=== PATIENT | female | born 1930 | race Asian ===

== ENCOUNTER 2017-01-17 18:30 | Inpatient (IN) | payer MEDICARE, OTHER ==
[~2017-01-17] VITALS: Ht 152.4 cm; Wt 46.4 kg
[~2017-01-17 18:30] MED LIST: ATOR20TA86 PO; CEFU250T58 PO; LOSA1TAB36 PO; METF500T4 PO; METO-323 PO; MIRT15 PO; OMEP20 PO; SITA1TAB6 PO
[2017-01-17 19:01] LABS: GLUCOSE,POINT OF CARE 162 MG/DL (70-110)
[2017-01-17 19:42] LABS: BASOPHILS % (AUTO) 0.4 % (0.0-2.0); EOSINOPHILS % (AUTO) 1.7 % (1.0-6.0); HEMATOCRIT 37.9 % (36-46); HEMOGLOBIN 12.4 g/dL (12.0-16.0); LYMPHOCYTES % (AUTO) 25.1 % (22.0-44.0); MEAN CORPUSCULAR HEMOGLOBIN 30.3 pg (26.0-34.0); MEAN CORPUSCULAR HGB CONC 32.7 G/dL (31.0-37.0); MEAN CORPUSCULAR VOLUME 93 fL (80-100); MONOCYTES # (AUTO) 0.5 K/uL (0.1-1.0); MONOCYTES % (AUTO) 6.5 % (2.0-9.0); NEUTROPHILS # (AUTO) 5.2 K/uL (1.8-7.7); NEUTROPHILS % (AUTO) 66.3 % (40.0-70.0); PLATELET COUNT (AUTO) 205 K/uL (150-450); RED BLOOD CELL COUNT(AUTO) 4.08 MIL/uL (4.00-5.20); RED CELL DISTRIBUTION WIDTH 14.5 % (11.5-14.5); WHITE BLOOD COUNT (AUTO) 7.9 K/uL (4.5-11.0)
[2017-01-17 19:50] LABS: CALCIUM, TOTAL 8.8 mg/dL (8.8-10.5); CREATININE 1.52 mg/dL (0.60-1.30); POTASSIUM 4.3 mmol/L (3.5-5.1)
[2017-01-17 19:55] LABS: ALBUMIN 3.6 g/dL (3.4-5.0); BILIRUBIN,TOTAL 0.3 mg/dL (0.1-1.0); TOTAL PROTEIN, SERUM 7.7 g/dL (6.4-8.2)
[2017-01-17 20:45] LABS: APPEARANCE,URINE CLOUDY (CLEAR); GLUCOSE, URINE (UA) NEGATIVE (NEGATIVE); KETONES,URINE TRACE mg/dL (NEGATIVE); LEUKOCYTE ESTERASE ,URINE SMALL (NEGATIVE); OCCULT BLOOD,URINE NEGATIVE (NEGATIVE); PH,URINE 5.5 (5.0-8.0); PROTEIN,URINE TRACE (NEGATIVE)
[2017-01-17 20:48] LABS: COARSE GRANULAR CASTS,URINE 0-2 /LPF (None Seen); RBC,URINE 0-2 /HPF (0-2); SQUAMOUS EPITHELIAL CELL,UR Few /LPF (None Seen)
[2017-01-17 23:00] VITALS: BP 121/60
[2017-01-17] MEDS ORDERED: LORazepam 2 MG/ML VIAL IM PRN (23:00)
[2017-01-17] MEDS ORDERED: DEXTROSE 50%-WATER 25 GM/50 ML SYRINGE IVP PRN (23:00)
[2017-01-18 05:23] VITALS: BP 134/62
[2017-01-18 06:14] LABS: BASOPHILS % (AUTO) 0.5 % (0.0-2.0); EOSINOPHILS % (AUTO) 2.6 % (1.0-6.0); HEMATOCRIT 35.9 % (36-46); HEMOGLOBIN 11.7 g/dL (12.0-16.0); LYMPHOCYTES # (AUTO) 2.4 K/uL (1.0-4.8); LYMPHOCYTES % (AUTO) 29.8 % (22.0-44.0); MEAN CORPUSCULAR HEMOGLOBIN 30.3 pg (26.0-34.0); MEAN CORPUSCULAR HGB CONC 32.5 G/dL (31.0-37.0); MEAN CORPUSCULAR VOLUME 93 fL (80-100); MONOCYTES # (AUTO) 0.5 K/uL (0.1-1.0); MONOCYTES % (AUTO) 6.9 % (2.0-9.0); NEUTROPHILS # (AUTO) 4.8 K/uL (1.8-7.7); NEUTROPHILS % (AUTO) 60.2 % (40.0-70.0); PLATELET COUNT (AUTO) 180 K/uL (150-450); RED BLOOD CELL COUNT(AUTO) 3.85 MIL/uL (4.00-5.20); RED CELL DISTRIBUTION WIDTH 14.6 % (11.5-14.5); WHITE BLOOD COUNT (AUTO) 7.9 K/uL (4.5-11.0)
[2017-01-18] MEDS: INSULIN ASPART 100 UNITS/ML SQ PRN (06:14)
[2017-01-18 06:42] LABS: CALCIUM, TOTAL 8.7 mg/dL (8.8-10.5); CHOL/HDL RATIO 1.5 (3.9-5.7); CREATININE 1.43 mg/dL (0.60-1.30); POTASSIUM 4.1 mmol/L (3.5-5.1)
[2017-01-18 07:02] VITALS: BP 120/53
[2017-01-18 07:16] LABS: HEMOGLOBIN A1C 6.5 % (4.5-6.2)
[2017-01-18 07:46] LABS: GLUCOSE COMMENT 1 Received Meds; GLUCOSE,POINT OF CARE 159 MG/DL (70-110)
[2017-01-18] MEDS ORDERED: 0.9% SODIUM CHLORIDE 10 ML SYRINGE IVP PRN (08:45)
[2017-01-18] MEDS ORDERED: ONDANSETRON HCL 4 MG/2 ML VIAL IVP PRN (08:45)
[2017-01-18] MEDS ORDERED: ACETAMINOPHEN 325 MG TABLET PO PRN (08:45)
[2017-01-18] MEDS ORDERED: ZOLPIDEM TARTRATE 5 MG TABLET PO PRN (08:45)
[2017-01-18] MEDS ORDERED: HYDROCODONE/ACETAMINOPHEN 5-325 MG TABLET PO PRN (08:45)
[2017-01-18] MEDS ORDERED: IPRATROPIUM BROMIDE 0.5 MG/2.5 ML NEB SOLUTION NEB PRN (08:45)
[2017-01-18] MEDS ORDERED: ALBUTEROL SULFATE 2.5 MG/0.5 ML NEB SOLUTION NEB PRN (08:45)
[2017-01-18] MEDS ORDERED: HYDROCHLOROTHIAZIDE 25 MG TABLET PO SCH (09:00)
[2017-01-18] MEDS ORDERED: OMEPRAZOLE 20 MG CAPSULE PO SCH (09:00)
[2017-01-18] MEDS ORDERED: LOSARTAN POTASSIUM 50 MG TABLET PO SCH (09:00)
[2017-01-18] MEDS ORDERED: HEPARIN SODIUM,PORCINE 5,000 UNITS/ML VIAL SQ SCH (09:00)
[2017-01-18] MEDS ORDERED: MISC MED-CONVERTED FROM AMBULATORY (Losartan/Hydrochlorothiazide (Losartan-Hctz 100-12.5 M PO SCH (09:00)
[2017-01-18] MEDS: METOPROLOL SUCCINATE 25 MG ER TABLET PO SCH ×3 (09:23→20:01)
[2017-01-18] MEDS: DOCUSATE SODIUM 250 MG CAPSULE PO SCH ×3 (09:23→20:02)
[2017-01-18] MEDS: AmLODIPine BESYLATE 5 MG TABLET PO SCH (09:23)
[2017-01-18 11:32] VITALS: BP 116/60
[2017-01-18 11:32] LABS: GLUCOSE,POINT OF CARE 80 MG/DL (70-110)
[2017-01-18] MEDS: DONEPEZIL HCL 5 MG TABLET PO SCH (12:08)
[2017-01-18] MEDS: ACARBOSE 50 MG TABLET PO SCH ×2 (12:08→18:00)
[2017-01-18 16:00] VITALS: BP 126/55
[2017-01-18] MEDS ORDERED: CefTRIAXone 1 GM/DEXTROSE 50 ML IV SCH (16:00)
[2017-01-18] MEDS ORDERED: SODIUM CHLORIDE 0.9% 250 ML IV ONE (16:18)
[2017-01-18] MEDS: CefTRIAXone 1 GM/DEXTROSE 50 ML IV SCH (16:33)
[2017-01-18 17:56] LABS: GLUCOSE,POINT OF CARE 114 MG/DL (70-110)
[2017-01-18] MEDS: ATORVASTATIN CALCIUM 20 MG TABLET PO SCH (20:00)
[2017-01-18] MEDS: MIRTAZAPINE 15 MG TABLET PO SCH (20:00)
[2017-01-18] MEDS: HEPARIN SODIUM,PORCINE 5,000 UNITS/ML VIAL SQ SCH (20:01)
[2017-01-18 20:14] VITALS: BP 116/64
[2017-01-18] MEDS ORDERED: ATORVASTATIN CALCIUM 20 MG TABLET PO SCH (21:00)
[2017-01-18 21:21] LABS: GLUCOSE,POINT OF CARE 110 MG/DL (70-110)
[2017-01-19] VITALS (7 sets, daily range): BP systolic 115–134; BP diastolic 54–67
[2017-01-19] MEDS: PANTOPRAZOLE SODIUM 40 MG DR TABLET PO SCH (05:40)
[2017-01-19 07:47] LABS: GLUCOSE,POINT OF CARE 125 MG/DL (70-110)
[2017-01-19 08:17] LABS: BASOPHILS # (AUTO) 0.03 K/uL (0.00-0.20); BASOPHILS % (AUTO) 0.5 % (0.0-2.0); EOSINOPHILS # (AUTO) 0.19 K/uL (0.00-0.70); EOSINOPHILS % (AUTO) 2.79 % (1.0-6.0); HEMATOCRIT 34.7 % (36-46); HEMOGLOBIN 11.7 g/dL (12.0-16.0); LYMPHOCYTES # (AUTO) 1.5 K/uL (1.0-4.8); LYMPHOCYTES % (AUTO) 22.2 % (22.0-44.0); MEAN CORPUSCULAR HEMOGLOBIN 30.7 pg (26.0-34.0); MEAN CORPUSCULAR HGB CONC 33.6 G/dL (31.0-37.0); MEAN CORPUSCULAR VOLUME 91 fL (80-100); MONOCYTES # (AUTO) 0.5 K/uL (0.1-1.0); MONOCYTES % (AUTO) 6.9 % (2.0-9.0); NEUTROPHILS # (AUTO) 4.6 K/uL (1.8-7.7); NEUTROPHILS % (AUTO) 67.6 % (40.0-70.0); PLATELET COUNT (AUTO) 171 K/uL (150-450); RED CELL DISTRIBUTION WIDTH 14.8 % (11.5-14.5); WHITE BLOOD COUNT (AUTO) 6.7 K/uL (4.5-11.0)
[2017-01-19] MEDS: ACARBOSE 50 MG TABLET PO SCH ×3 (08:19→18:05)
[2017-01-19] MEDS: AmLODIPine BESYLATE 5 MG TABLET PO SCH (08:19)
[2017-01-19] MEDS: DONEPEZIL HCL 5 MG TABLET PO SCH (08:19)
[2017-01-19] MEDS: DOCUSATE SODIUM 250 MG CAPSULE PO SCH ×3 (08:20→20:04)
[2017-01-19] MEDS: HEPARIN SODIUM,PORCINE 5,000 UNITS/ML VIAL SQ SCH ×2 (08:20→20:23)
[2017-01-19] MEDS: METOPROLOL SUCCINATE 25 MG ER TABLET PO SCH ×3 (08:20→23:50)
[2017-01-19 09:12] LABS: BILIRUBIN,TOTAL 0.3 mg/dL (0.1-1.0); CALCIUM, TOTAL 8.8 mg/dL (8.8-10.5); CREATININE 1.03 mg/dL (0.60-1.30); POTASSIUM 4.5 mmol/L (3.5-5.1)
[2017-01-19 09:13] LABS: ALBUMIN 3.1 g/dL (3.4-5.0); TOTAL PROTEIN, SERUM 6.7 g/dL (6.4-8.2)
[2017-01-19 09:23] LABS: THYROID STIMULATING HORMONE 3.71 uIU/mL (0.36-3.74)
[2017-01-19] MEDS: ASPIRIN 81 MG CHEWABLE TABLET PO SCH (11:30)
[2017-01-19 11:42] LABS: GLUCOSE,POINT OF CARE 138 MG/DL (70-110)
[2017-01-19] MEDS ORDERED: LORazepam 1 MG TABLET PO ONE (12:00)
[2017-01-19 15:10] LABS: CREATININE, URINE (mALB) 63.7 mg/dL (Not Estab.)
[2017-01-19] MEDS: CefTRIAXone 1 GM/DEXTROSE 50 ML IV SCH (16:45)
[2017-01-19] MEDS: INSULIN ASPART 100 UNITS/ML SQ PRN (18:02)
[2017-01-19] MEDS: ATORVASTATIN CALCIUM 20 MG TABLET PO SCH (20:04)
[2017-01-19] MEDS: MIRTAZAPINE 15 MG TABLET PO SCH (20:05)
[2017-01-19 23:27] LABS: GLUCOSE,POINT OF CARE 103 MG/DL (70-110)
[2017-01-20 04:30] VITALS: BP 119/56
[2017-01-20] MEDS: PANTOPRAZOLE SODIUM 40 MG DR TABLET PO SCH (06:23)
[2017-01-20 06:28] LABS: ALBUMIN 3.1 g/dL (3.4-5.0); BILIRUBIN,TOTAL 0.2 mg/dL (0.1-1.0); CALCIUM, TOTAL 8.5 mg/dL (8.8-10.5); CREATININE 0.92 mg/dL (0.60-1.30); POTASSIUM 4.1 mmol/L (3.5-5.1)
[2017-01-20 06:52] LABS: BASOPHILS % (AUTO) 0.4 % (0.0-2.0); EOSINOPHILS % (AUTO) 4.4 % (1.0-6.0); HEMATOCRIT 34.2 % (36-46); HEMOGLOBIN 11.2 g/dL (12.0-16.0); LYMPHOCYTES # (AUTO) 1.7 K/uL (1.0-4.8); MEAN CORPUSCULAR HEMOGLOBIN 30.3 pg (26.0-34.0); MEAN CORPUSCULAR HGB CONC 32.6 G/dL (31.0-37.0); MEAN CORPUSCULAR VOLUME 93 fL (80-100); MONOCYTES # (AUTO) 0.4 K/uL (0.1-1.0); NEUTROPHILS # (AUTO) 3.7 K/uL (1.8-7.7); NEUTROPHILS % (AUTO) 60.2 % (40.0-70.0); PLATELET COUNT (AUTO) 173 K/uL (150-450); RED BLOOD CELL COUNT(AUTO) 3.68 MIL/uL (4.00-5.20); RED CELL DISTRIBUTION WIDTH 14.4 % (11.5-14.5); WHITE BLOOD COUNT (AUTO) 6.2 K/uL (4.5-11.0)
[2017-01-20 07:25] VITALS: BP 137/69
[2017-01-20] MEDS: ACARBOSE 50 MG TABLET PO SCH ×3 (08:30→18:36)
[2017-01-20] MEDS: DONEPEZIL HCL 5 MG TABLET PO SCH (08:30)
[2017-01-20] MEDS: DOCUSATE SODIUM 250 MG CAPSULE PO SCH ×3 (08:30→20:17)
[2017-01-20] MEDS: METOPROLOL SUCCINATE 25 MG ER TABLET PO SCH ×2 (08:30→20:18)
[2017-01-20] MEDS: ASPIRIN 81 MG CHEWABLE TABLET PO SCH (08:30)
[2017-01-20] MEDS: HEPARIN SODIUM,PORCINE 5,000 UNITS/ML VIAL SQ SCH ×2 (08:31→20:18)
[2017-01-20 11:17] VITALS: BP 97/51
[2017-01-20] MEDS: INSULIN ASPART 100 UNITS/ML SQ PRN (12:26)
[2017-01-20 12:38] LABS: GLUCOSE,POINT OF CARE 134 MG/DL (70-110)
[2017-01-20 12:38] LABS: GLUCOSE,POINT OF CARE 277 MG/DL (70-110)
[2017-01-20] MEDS: CefTRIAXone 1 GM/DEXTROSE 50 ML IV SCH (15:02)
[2017-01-20 16:33] VITALS: BP 100/50
[2017-01-20 16:42] LABS: GLUCOSE COMMENT 1 Juice/Food/D50 Given; GLUCOSE,POINT OF CARE 71 MG/DL (70-110)
[2017-01-20 19:53] VITALS: BP 108/52
[2017-01-20] MEDS: ATORVASTATIN CALCIUM 20 MG TABLET PO SCH (20:17)
[2017-01-20] MEDS: MIRTAZAPINE 15 MG TABLET PO SCH (20:18)
[2017-01-20 22:22] LABS: GLUCOSE,POINT OF CARE 116 MG/DL (70-110)
[2017-01-20 23:33] VITALS: BP 120/76
[2017-01-21 05:01] VITALS: BP 127/55
[2017-01-21] MEDS: PANTOPRAZOLE SODIUM 40 MG DR TABLET PO SCH (06:31)
[2017-01-21 07:03] LABS: BASOPHILS # (AUTO) 0.03 K/uL (0.00-0.20); BASOPHILS % (AUTO) 0.4 % (0.0-2.0); EOSINOPHILS # (AUTO) 0.19 K/uL (0.00-0.70); EOSINOPHILS % (AUTO) 2.99 % (1.0-6.0); HEMATOCRIT 32.7 % (36-46); LYMPHOCYTES % (AUTO) 31.5 % (22.0-44.0); MEAN CORPUSCULAR HEMOGLOBIN 30.8 pg (26.0-34.0); MEAN CORPUSCULAR HGB CONC 33.6 G/dL (31.0-37.0); MEAN CORPUSCULAR VOLUME 92 fL (80-100); MONOCYTES # (AUTO) 0.4 K/uL (0.1-1.0); MONOCYTES % (AUTO) 6.2 % (2.0-9.0); NEUTROPHILS # (AUTO) 3.8 K/uL (1.8-7.7); NEUTROPHILS % (AUTO) 58.9 % (40.0-70.0); PLATELET COUNT (AUTO) 168 K/uL (150-450); RED BLOOD CELL COUNT(AUTO) 3.57 MIL/uL (4.00-5.20); RED CELL DISTRIBUTION WIDTH 14.9 % (11.5-14.5); WHITE BLOOD COUNT (AUTO) 6.4 K/uL (4.5-11.0)
[2017-01-21 07:20] VITALS: BP 121/60
[2017-01-21 07:27] LABS: GLUCOSE,POINT OF CARE 114 MG/DL (70-110)
[2017-01-21 07:29] LABS: ALBUMIN 2.9 g/dL (3.4-5.0); BILIRUBIN,TOTAL 0.2 mg/dL (0.1-1.0); CALCIUM, TOTAL 8.8 mg/dL (8.8-10.5); CREATININE 0.94 mg/dL (0.60-1.30); MAGNESIUM 1.7 mg/dL (1.80-2.40); PHOSPHORUS 3.4 mg/dL (2.5-4.9); POTASSIUM 4.1 mmol/L (3.5-5.1); TOTAL PROTEIN, SERUM 6.7 g/dL (6.4-8.2)
[2017-01-21] MEDS: DOCUSATE SODIUM 250 MG CAPSULE PO SCH ×3 (08:27→20:37)
[2017-01-21] MEDS: ACARBOSE 50 MG TABLET PO SCH ×3 (08:27→17:55)
[2017-01-21] MEDS: DONEPEZIL HCL 5 MG TABLET PO SCH (08:27)
[2017-01-21] MEDS: ASPIRIN 81 MG CHEWABLE TABLET PO SCH (08:27)
[2017-01-21] MEDS: HEPARIN SODIUM,PORCINE 5,000 UNITS/ML VIAL SQ SCH ×2 (08:28→20:37)
[2017-01-21] MEDS: METOPROLOL SUCCINATE 25 MG ER TABLET PO SCH ×2 (08:29→20:37)
[2017-01-21 11:10] VITALS: BP 124/54
[2017-01-21 11:47] LABS: GLUCOSE,POINT OF CARE 246 MG/DL (70-110)
[2017-01-21] MEDS: INSULIN ASPART 100 UNITS/ML SQ PRN ×2 (12:22→20:38)
[2017-01-21] MEDS: CefTRIAXone 1 GM/DEXTROSE 50 ML IV SCH (15:01)
[2017-01-21 15:28] VITALS: BP 127/77
[2017-01-21 17:37] LABS: GLUCOSE,POINT OF CARE 123 MG/DL (70-110)
[2017-01-21 20:30] VITALS: BP 138/64
[2017-01-21] MEDS: ATORVASTATIN CALCIUM 20 MG TABLET PO SCH (20:36)
[2017-01-21] MEDS: MIRTAZAPINE 15 MG TABLET PO SCH (20:37)
[2017-01-21 20:48] LABS: GLUCOSE COMMENT 1 Received Meds; GLUCOSE,POINT OF CARE 203 MG/DL (70-110)
[2017-01-22] VITALS (7 sets, daily range): BP systolic 104–137; BP diastolic 52–74
[2017-01-22 05:06] LABS: GLUCOSE,POINT OF CARE 128 MG/DL (70-110)
[2017-01-22] MEDS: PANTOPRAZOLE SODIUM 40 MG DR TABLET PO SCH (06:16)
[2017-01-22 06:44] LABS: ALANINE AMINOTRANSFERASE 56 U/L (12-78); ALBUMIN 2.9 g/dL (3.4-5.0); ANION GAP 6 mmol/L (8-16); ASPARTATE AMINOTRANSFERASE 56 U/L (15-37); BILIRUBIN,TOTAL 0.1 mg/dL (0.1-1.0); CALCIUM, TOTAL 8.9 mg/dL (8.8-10.5); CARBON DIOXIDE 31 mmol/L (22-29); CHLORIDE 106 mmol/L (98-107); CREATININE 0.88 mg/dL (0.60-1.30); GLOMERULAR FILTR. RATE CALC > 60 mL/min (>60); POTASSIUM 4.5 mmol/L (3.5-5.1); SODIUM SERUM 143 mmol/L (136-145); TOTAL PROTEIN, SERUM 6.8 g/dL (6.4-8.2); UREA NITROGEN, BLOOD 22 mg/dL (7-18)
[2017-01-22] MEDS: METOPROLOL SUCCINATE 25 MG ER TABLET PO SCH ×2 (08:21→20:08)
[2017-01-22] MEDS: DONEPEZIL HCL 5 MG TABLET PO SCH (08:21)
[2017-01-22] MEDS: HEPARIN SODIUM,PORCINE 5,000 UNITS/ML VIAL SQ SCH ×2 (08:30→20:08)
[2017-01-22] MEDS: DOCUSATE SODIUM 250 MG CAPSULE PO SCH ×3 (08:30→20:08)
[2017-01-22] MEDS: ASPIRIN 81 MG CHEWABLE TABLET PO SCH (08:30)
[2017-01-22] MEDS: ACARBOSE 50 MG TABLET PO SCH ×3 (08:30→17:54)
[2017-01-22] MEDS ORDERED: FUROSEMIDE 20 MG/2 ML VIAL ONE (08:36)
[2017-01-22] MEDS ORDERED: MERTIATIDE TC99M ISOTOPE 1 EA INJ INJ ONE (09:55)
[2017-01-22] MEDS: INSULIN ASPART 100 UNITS/ML SQ PRN ×2 (11:57→17:52)
[2017-01-22] MEDS: CefTRIAXone 1 GM/DEXTROSE 50 ML IV SCH (14:58)
[2017-01-22] MEDS: MIRTAZAPINE 15 MG TABLET PO SCH (20:08)
[2017-01-22] MEDS: ATORVASTATIN CALCIUM 20 MG TABLET PO SCH (20:08)
[2017-01-23 00:12] LABS: GLUCOSE,POINT OF CARE 125 MG/DL (70-110)
[2017-01-23 00:12] LABS: GLUCOSE COMMENT 1 Received Meds; GLUCOSE,POINT OF CARE 149 MG/DL (70-110)
[2017-01-23 00:12] LABS: GLUCOSE COMMENT 1 Received Meds; GLUCOSE,POINT OF CARE 154 MG/DL (70-110)
[2017-01-23 05:23] VITALS: BP 111/56
[2017-01-23] MEDS: PANTOPRAZOLE SODIUM 40 MG DR TABLET PO SCH (05:41)
[2017-01-23 07:08] LABS: BILIRUBIN,TOTAL 0.2 mg/dL (0.1-1.0); CREATININE 0.95 mg/dL (0.60-1.30); POTASSIUM 4.2 mmol/L (3.5-5.1); TOTAL PROTEIN, SERUM 6.7 g/dL (6.4-8.2)
[2017-01-23 07:32] LABS: GLUCOSE,POINT OF CARE 120 MG/DL (70-110)
[2017-01-23 07:34] VITALS: BP 108/54
[2017-01-23] MEDS: METOPROLOL SUCCINATE 25 MG ER TABLET PO SCH (08:25)
[2017-01-23] MEDS: ACARBOSE 50 MG TABLET PO SCH ×2 (08:26→11:36)
[2017-01-23] MEDS: DONEPEZIL HCL 5 MG TABLET PO SCH (08:26)
[2017-01-23] MEDS: DOCUSATE SODIUM 250 MG CAPSULE PO SCH (08:26)
[2017-01-23] MEDS: HEPARIN SODIUM,PORCINE 5,000 UNITS/ML VIAL SQ SCH (08:26)
[2017-01-23] MEDS: ASPIRIN 81 MG CHEWABLE TABLET PO SCH (08:26)
[2017-01-23] MEDS: CefTRIAXone 1 GM/DEXTROSE 50 ML IV SCH (11:16)
[2017-01-23] MEDS: INSULIN ASPART 100 UNITS/ML SQ PRN (11:36)
[2017-01-23 11:47] VITALS: BP 111/52
[2017-01-23 12:31] LABS: GLUCOSE COMMENT 1 Received Meds; GLUCOSE,POINT OF CARE 274 MG/DL (70-110)
[2017-01-23] MEDS ORDERED: ACAR50TA11 PO (12:49)
[2017-01-23] MEDS ORDERED: ATOR20TA86 PO (12:50)
[2017-01-23] MEDS ORDERED: ASPI-1093 PO (12:50)
[2017-01-23] MEDS ORDERED: DOCU250C91 PO (12:51)
[2017-01-23] MEDS ORDERED: DONE10TA PO (12:52)
[2017-01-23] MEDS ORDERED: METO-323 PO (12:53)
[2017-01-23] MEDS ORDERED: ACET-784 PO (12:54)
[2017-01-23] MEDS ORDERED: AUD NEB (12:57)
[2017-01-23] MEDS ORDERED: INSNOV SQ (12:58)
== END 2017-01-23 14:00 | DRG 871 ==
LOC: EMS 18:35 → 6N 21:56
PROVIDERS: ADMIT Internal Medicine; ATTEND Internal Medicine
DX: A41.9 Sepsis, unspecified organism (principal); G93.40 Encephalopathy, unspecified; N17.9 Acute kidney failure, unspecified; N39.0 Urinary tract infection, site not specified; I13.0 Hypertensive heart and chronic kidney disease with heart failure and stage 1 through stage 4 chronic kidney disease, or unspecified chronic kidney disease; I50.30 Unspecified diastolic (congestive) heart failure; E11.65 Type 2 diabetes mellitus with hyperglycemia; E78.5 Hyperlipidemia, unspecified; F01.50 Vascular dementia, unspecified severity, without behavioral disturbance, psychotic disturbance, mood disturbance, and anxiety; N28.89 Other specified disorders of kidney and ureter; N18.9 Chronic kidney disease, unspecified; K21.9 Gastro-esophageal reflux disease without esophagitis; R62.7 Adult failure to thrive; I05.0 Rheumatic mitral stenosis; E11.22 Type 2 diabetes mellitus with diabetic chronic kidney disease; B96.89 Other specified bacterial agents as the cause of diseases classified elsewhere; Z79.84 Long term (current) use of oral hypoglycemic drugs; Z87.440 Personal history of urinary (tract) infections; Z86.73 Personal history of transient ischemic attack (TIA), and cerebral infarction without residual deficits; Z79.899 Other long term (current) drug therapy; Z83.3 Family history of diabetes mellitus
CPT/HCPCS: 70450; 74000; 74181; 76770; 78707; 82043; 82570; 82962; 83036; 83735; 84100; 84156; 84300; 84443; 84540; 87086; 89050; 93005; 97162; 97165; 99285; A9562; J0696; J1644; J1940; J7050

== ENCOUNTER 2017-10-15 15:07 | Inpatient (IN) | payer MEDICARE, OTHER, MEDICAID ==
[~2017-10-15] VITALS: Ht 149.9 cm; Wt 52.3 kg
[~2017-10-15 15:07] MED LIST changes: +ACAR50TA11 PO; +ACET-784 PO; +ASPI-1188 PO; +AUD NEB; -CEFU250T58 PO; +DOCU250C91 PO; +DONE10TA8 PO; +INSNOV SQ; -LOSA1TAB36 PO; -METF500T4 PO; -METO-323 PO; +METO25XL PO; -OMEP20 PO; -SITA1TAB6 PO
[2017-10-15 15:28] LABS: GLUCOSE,POINT OF CARE 312 MG/DL (70-110)
[2017-10-15] MEDS ORDERED: METF850T2 PO (16:18)
[2017-10-15] MEDS ORDERED: DONE10TA8 PO (16:18)
[2017-10-15] MEDS ORDERED: RAMI1.25 PO (16:18)
[2017-10-15] MEDS ORDERED: MEMA10TA11 PO (16:18)
[2017-10-15] MEDS ORDERED: PIOG15TA6 PO (16:18)
[2017-10-15] MEDS ORDERED: INSULIN REGULAR, HUMAN 100 UNITS/ML IVP ONE (17:15)
[2017-10-15] MEDS ORDERED: SODIUM CHLORIDE 0.9% 1,000 ML IV ONE (17:15)
[2017-10-15 17:27] LABS: BASOPHILS # (AUTO) 0.05 K/uL (0.00-0.20); BASOPHILS % (AUTO) 0.7 % (0.0-2.0); EOSINOPHILS # (AUTO) 0.09 K/uL (0.00-0.70); EOSINOPHILS % (AUTO) 1.42 % (1.0-6.0); HEMATOCRIT 36.5 % (36-46); LYMPHOCYTES # (AUTO) 1.2 K/uL (1.0-4.8); LYMPHOCYTES % (AUTO) 19.9 % (22.0-44.0); MEAN CORPUSCULAR HGB CONC 32.9 G/dL (31.0-37.0); MEAN CORPUSCULAR VOLUME 94 fL (80-100); MONOCYTES # (AUTO) 0.4 K/uL (0.1-1.0); MONOCYTES % (AUTO) 5.7 % (2.0-9.0); NEUTROPHILS # (AUTO) 4.5 K/uL (1.8-7.7); NEUTROPHILS % (AUTO) 72.3 % (40.0-70.0); PLATELET COUNT (AUTO) 185 K/uL (150-450); RED BLOOD CELL COUNT(AUTO) 3.87 MIL/uL (4.00-5.20); RED CELL DISTRIBUTION WIDTH 13.9 % (11.5-14.5); WHITE BLOOD COUNT (AUTO) 6.2 K/uL (4.5-11.0)
[2017-10-15 17:44] LABS: ANION GAP 6 mmol/L (8-16); CALCIUM, TOTAL 8.9 mg/dL (8.8-10.5); CARBON DIOXIDE 32 mmol/L (22-29); CHLORIDE 100 mmol/L (98-107); CREATININE 1.06 mg/dL (0.60-1.30); GLOMERULAR FILTR. RATE CALC 49 mL/min (>60); POTASSIUM 4.2 mmol/L (3.5-5.1); SODIUM SERUM 138 mmol/L (136-145); UREA NITROGEN, BLOOD 11 mg/dL (7-18)
[2017-10-15 17:51] LABS: ALANINE AMINOTRANSFERASE 32 U/L (12-78); ALBUMIN 2.6 g/dL (3.4-5.0); ASPARTATE AMINOTRANSFERASE 23 U/L (15-37); BILIRUBIN,TOTAL 0.2 mg/dL (0.1-1.0); CREATINE KINASE, TOTAL 36 U/L (26-192); TOTAL PROTEIN, SERUM 6.7 g/dL (6.4-8.2)
[2017-10-15 18:37] LABS: B-TYPE NATRIURETIC PEPTIDE 366 pg/mL (0-100)
[2017-10-15] MEDS ORDERED: BUMETANIDE 0.25 MG/ML 10 ML VIAL IVP ONE (19:30)
[2017-10-15] MEDS ORDERED: ONDANSETRON HCL 4 MG/2 ML VIAL IVP PRN (19:30)
[2017-10-15] MEDS ORDERED: 0.9% SODIUM CHLORIDE 10 ML SYRINGE IVP PRN (19:30)
[2017-10-15] MEDS ORDERED: BUMETANIDE 0.25 MG/ML 4 ML VIAL IVP ONE (19:30)
[2017-10-15] MEDS ORDERED: ACETAMINOPHEN 325 MG TABLET PO PRN (19:30)
[2017-10-15] MEDS ORDERED: CefTRIAXone 1 GM/DEXTROSE 50 ML IV ONE ×2 (19:30→19:45)
[2017-10-15 19:42] LABS: GLUCOSE,POINT OF CARE 120 MG/DL (70-110)
[2017-10-15 22:00] LABS: APPEARANCE,URINE CLEAR (CLEAR); GLUCOSE, URINE (UA) NEGATIVE (NEGATIVE); KETONES,URINE NEGATIVE (NEGATIVE); LEUKOCYTE ESTERASE ,URINE NEGATIVE (NEGATIVE); OCCULT BLOOD,URINE NEGATIVE (NEGATIVE); PROTEIN,URINE POS 1+ (NEGATIVE)
[2017-10-15 22:03] LABS: ADD UA MICROSCOPIC NO
[2017-10-15 22:26] VITALS: BP 140/72
[2017-10-15] MEDS ORDERED: ALBUTEROL SULFATE 2.5 MG/0.5 ML NEB SOLUTION NEB PRN (23:00)
[2017-10-15] MEDS ORDERED: IPRATROPIUM BROMIDE 0.5 MG/2.5 ML NEB SOLUTION NEB PRN (23:00)
[2017-10-15] MEDS: ALBUTEROL SULFATE 2.5 MG/0.5 ML NEB SOLUTION NEB SCH (23:03)
[2017-10-15] MEDS: IPRATROPIUM BROMIDE 0.5 MG/2.5 ML NEB SOLUTION NEB SCH (23:03)
[2017-10-15] MEDS ORDERED: DEXTROSE 50%-WATER 25 GM/50 ML SYRINGE IVP PRN (23:30)
[2017-10-15] MEDS ORDERED: ZOLPIDEM TARTRATE 10 MG TABLET PO PRN (23:45)
[2017-10-15] MEDS ORDERED: ACETAMINOPHEN 500 MG TABLET PO PRN (23:45)
[2017-10-15 23:55] VITALS: BP 130/73
[2017-10-16] MEDS: METOPROLOL SUCCINATE 25 MG ER TABLET PO SCH ×3 (00:02→21:02)
[2017-10-16] MEDS: IPRATROPIUM BROMIDE 0.5 MG/2.5 ML NEB SOLUTION NEB SCH ×4 (02:13→20:12)
[2017-10-16] MEDS: ALBUTEROL SULFATE 2.5 MG/0.5 ML NEB SOLUTION NEB SCH ×4 (02:13→20:12)
[2017-10-16 05:37] VITALS: BP 128/73
[2017-10-16 06:04] LABS: BASOPHILS % (AUTO) 0.7 % (0.0-2.0); EOSINOPHILS % (AUTO) 1.7 % (1.0-6.0); HEMATOCRIT 33.7 % (36-46); HEMOGLOBIN 11.4 g/dL (12.0-16.0); LYMPHOCYTES # (AUTO) 1.5 K/uL (1.0-4.8); LYMPHOCYTES % (AUTO) 24.7 % (22.0-44.0); MEAN CORPUSCULAR HEMOGLOBIN 31.3 pg (26.0-34.0); MEAN CORPUSCULAR HGB CONC 33.7 G/dL (31.0-37.0); MEAN CORPUSCULAR VOLUME 93 fL (80-100); MONOCYTES # (AUTO) 0.4 K/uL (0.1-1.0); MONOCYTES % (AUTO) 6.8 % (2.0-9.0); NEUTROPHILS # (AUTO) 4.1 K/uL (1.8-7.7); NEUTROPHILS % (AUTO) 66.1 % (40.0-70.0); PLATELET COUNT (AUTO) 193 K/uL (150-450); RED BLOOD CELL COUNT(AUTO) 3.63 MIL/uL (4.00-5.20); RED CELL DISTRIBUTION WIDTH 13.8 % (11.5-14.5); WHITE BLOOD COUNT (AUTO) 6.2 K/uL (4.5-11.0)
[2017-10-16 06:31] LABS: CALCIUM, TOTAL 8.6 mg/dL (8.8-10.5); CHOL/HDL RATIO 2.1 (3.9-5.7); CREATININE 0.92 mg/dL (0.60-1.30); MAGNESIUM 1.2 mg/dL (1.80-2.40); POTASSIUM 3.1 mmol/L (3.5-5.1); THYROID STIMULATING HORMONE 6.43 uIU/mL (0.36-3.74)
[2017-10-16] MEDS: INSULIN ASPART 100 UNITS/ML SQ PRN ×2 (06:31→11:44)
[2017-10-16 07:37] VITALS: BP 119/66
[2017-10-16 07:48] LABS: HEMOGLOBIN A1C 10.3 % (4.5-6.2)
[2017-10-16] MEDS: OXYGEN THERAPY IH SCH ×2 (08:00→20:12)
[2017-10-16] MEDS ORDERED: HYDROCODONE/ACETAMINOPHEN 5-325 MG TABLET PO PRN (08:30)
[2017-10-16] MEDS ORDERED: 0.9% SODIUM CHLORIDE 10 ML SYRINGE IVP PRN (08:30)
[2017-10-16] MEDS ORDERED: ZOLPIDEM TARTRATE 5 MG TABLET PO PRN (08:30)
[2017-10-16] MEDS ORDERED: ACETAMINOPHEN 325 MG TABLET PO PRN (08:30)
[2017-10-16] MEDS ORDERED: ONDANSETRON HCL 4 MG/2 ML VIAL IVP PRN (08:30)
[2017-10-16] MEDS ORDERED: MAGNESIUM SULFATE 2 GM in DEXTROSE 5%-WATER 50 ML IV ONE (10:15)
[2017-10-16] MEDS ORDERED: POTASSIUM CHLORIDE 20 MEQ ER TABLET PO PRN (10:15)
[2017-10-16] MEDS ORDERED: HEPARIN SODIUM,PORCINE 5,000 UNITS/ML VIAL SQ SCH (10:15)
[2017-10-16] MEDS ORDERED: SODIUM CHLORIDE 0.9% 250 ML IV ONE (10:27)
[2017-10-16] MEDS: RAMIPRIL 1.25 MG CAPSULE PO SCH ×2 (10:36→21:03)
[2017-10-16] MEDS: ACARBOSE 50 MG TABLET PO SCH ×3 (10:36→17:19)
[2017-10-16] MEDS: DOCUSATE SODIUM 250 MG CAPSULE PO SCH ×3 (10:36→21:05)
[2017-10-16] MEDS: MetFORMIN HCL 850 MG TABLET PO SCH ×2 (10:36→17:19)
[2017-10-16] MEDS: ASPIRIN 81 MG CHEWABLE TABLET PO SCH (10:37)
[2017-10-16] MEDS: HEPARIN SODIUM,PORCINE 5,000 UNITS/ML VIAL SQ SCH ×2 (10:37→21:02)
[2017-10-16 11:36] VITALS: BP 137/75
[2017-10-16 12:12] LABS: GLUCOSE COMMENT 1 Received Meds; GLUCOSE,POINT OF CARE 171 MG/DL (70-110)
[2017-10-16] MEDS: INSULIN GLARGINE,HUM.REC.ANLOG 100 UNITS/ML SQ SCH (13:05)
[2017-10-16 15:12] VITALS: BP 127/64
[2017-10-16] MEDS ORDERED: IOVERSOL 320 MG/ML 100 ML VIAL ONE (17:52)
[2017-10-16] MEDS ORDERED: BARIUM SULFATE 0.1% SUSPENSION 450 ML BOTTLE ONE (17:53)
[2017-10-16 19:44] VITALS: BP 123/75
[2017-10-16] MEDS ORDERED: MIRTAZAPINE 15 MG TABLET PO SCH (21:00)
[2017-10-16] MEDS ORDERED: ATORVASTATIN CALCIUM 20 MG TABLET PO SCH (21:00)
[2017-10-16 23:43] VITALS: BP 124/70
[2017-10-17] MEDS: IPRATROPIUM BROMIDE 0.5 MG/2.5 ML NEB SOLUTION NEB SCH ×4 (02:22→19:37)
[2017-10-17] MEDS: ALBUTEROL SULFATE 2.5 MG/0.5 ML NEB SOLUTION NEB SCH ×4 (02:22→19:37)
[2017-10-17 04:37] VITALS: BP 108/52
[2017-10-17] MEDS ORDERED: LEVOTHYROXINE SODIUM 50 MCG TABLET PO SCH (06:30)
[2017-10-17] MEDS ORDERED: PANTOPRAZOLE SODIUM 40 MG DR TABLET PO SCH (06:30)
[2017-10-17 06:44] LABS: BASOPHILS % (AUTO) 0.5 % (0.0-2.0); EOSINOPHILS % (AUTO) 2.7 % (1.0-6.0); HEMATOCRIT 35.2 % (36-46); HEMOGLOBIN 11.9 g/dL (12.0-16.0); LYMPHOCYTES # (AUTO) 1.2 K/uL (1.0-4.8); LYMPHOCYTES % (AUTO) 23.2 % (22.0-44.0); MEAN CORPUSCULAR HEMOGLOBIN 31.3 pg (26.0-34.0); MEAN CORPUSCULAR HGB CONC 33.7 G/dL (31.0-37.0); MEAN CORPUSCULAR VOLUME 93 fL (80-100); MONOCYTES # (AUTO) 0.4 K/uL (0.1-1.0); MONOCYTES % (AUTO) 7.5 % (2.0-9.0); NEUTROPHILS # (AUTO) 3.4 K/uL (1.8-7.7); NEUTROPHILS % (AUTO) 66.1 % (40.0-70.0); PLATELET COUNT (AUTO) 207 K/uL (150-450); WHITE BLOOD COUNT (AUTO) 5.1 K/uL (4.5-11.0)
[2017-10-17 06:58] LABS: HEMOGLOBIN A1C 10.2 % (4.5-6.2)
[2017-10-17 07:18] VITALS: BP 140/73
[2017-10-17] MEDS: MetFORMIN HCL 850 MG TABLET PO SCH ×2 (08:00→18:00)
[2017-10-17] MEDS: ACARBOSE 50 MG TABLET PO SCH ×3 (08:00→18:00)
[2017-10-17] MEDS ORDERED: SODIUM CHLORIDE 0.9% 500 ML IV ONE (08:00)
[2017-10-17] MEDS ORDERED: BARIUM SULFATE 0.1% SUSPENSION 450 ML BOTTLE ONE (08:56)
[2017-10-17] MEDS ORDERED: IOVERSOL 350 MG/ML 100 ML VIAL ONE (08:56)
[2017-10-17] MEDS: DOCUSATE SODIUM 250 MG CAPSULE PO SCH ×2 (09:00→16:00)
[2017-10-17] MEDS: INSULIN GLARGINE,HUM.REC.ANLOG 100 UNITS/ML SQ SCH (09:00)
[2017-10-17 09:46] LABS: CALCIUM, TOTAL 8.7 mg/dL (8.8-10.5); CHOL/HDL RATIO 2.1 (3.9-5.7); CREATININE 1.02 mg/dL (0.60-1.30); MAGNESIUM 2.1 mg/dL (1.80-2.40); POTASSIUM 4.7 mmol/L (3.5-5.1); THYROID STIMULATING HORMONE 4.69 uIU/mL (0.36-3.74)
[2017-10-17] MEDS: OXYGEN THERAPY IH SCH ×2 (09:56→19:37)
[2017-10-17 11:04] VITALS: BP 141/71
[2017-10-17] MEDS: RAMIPRIL 1.25 MG CAPSULE PO SCH (13:10)
[2017-10-17] MEDS: METOPROLOL SUCCINATE 25 MG ER TABLET PO SCH (13:11)
[2017-10-17] MEDS: ASPIRIN 81 MG CHEWABLE TABLET PO SCH (13:11)
[2017-10-17] MEDS: HEPARIN SODIUM,PORCINE 5,000 UNITS/ML VIAL SQ SCH (13:12)
[2017-10-17 13:20] LABS: N-ACETYL PROCAINAMIDE FRAC <0.9 ug/mL (6.0-20.0); PROCAINAMIDE (FRAC) <0.6 ug/mL (4.0-10.0); PROCAINAMIDE + NAPA TOTAL <1.5 ug/mL (10.0-30.0)
[2017-10-17] MEDS ORDERED: LEVO50 PO (14:48)
[2017-10-17] MEDS ORDERED: INSLAN SQ (14:49)
[2017-10-17 15:16] VITALS: BP 119/68
[2017-10-17 18:07] LABS: GLUCOSE,POINT OF CARE 94 MG/DL (70-110)
[2017-10-17 18:08] LABS: GLUCOSE,POINT OF CARE 149 MG/DL (70-110)
[2017-10-17 21:48] LABS: GLUCOSE,POINT OF CARE 155 MG/DL (70-110)
[2017-10-18 07:32] LABS: GLUCOSE COMMENT 1 Received Meds; GLUCOSE,POINT OF CARE 144 MG/DL (70-110)
[2017-10-18 07:33] LABS: GLUCOSE,POINT OF CARE 136 MG/DL (70-110)
[2017-10-19 11:59] LABS: GLUCOSE,POINT OF CARE 58 MG/DL (70-110)
[2017-10-19 11:59] LABS: GLUCOSE,POINT OF CARE 106 MG/DL (70-110)
== END 2017-10-17 20:10 | disposition home or self-care (01) | DRG 291 ==
LOC: EDUNIT# 15:07 → EMS 15:15 → EDBD 15:15 → EMS 21:07 → 5S 22:11
PROVIDERS: ADMIT Internal Medicine; ATTEND Internal Medicine
DX: I11.0 Hypertensive heart disease with heart failure (principal); J96.00 Acute respiratory failure, unspecified whether with hypoxia or hypercapnia; E11.65 Type 2 diabetes mellitus with hyperglycemia; F03.90 Unspecified dementia, unspecified severity, without behavioral disturbance, psychotic disturbance, mood disturbance, and anxiety; I50.32 Chronic diastolic (congestive) heart failure; I05.2 Rheumatic mitral stenosis with insufficiency; E03.9 Hypothyroidism, unspecified; E78.5 Hyperlipidemia, unspecified; K21.9 Gastro-esophageal reflux disease without esophagitis; N28.89 Other specified disorders of kidney and ureter; Z86.73 Personal history of transient ischemic attack (TIA), and cerebral infarction without residual deficits; Z79.82 Long term (current) use of aspirin; Z79.899 Other long term (current) drug therapy; Z79.4 Long term (current) use of insulin
CPT/HCPCS: 70450; 74177; 74181; 80192; 82962; 83036; 83605; 83735; 84132; 84443; 87040; 93005; 93306; 94640; 96361; 96365; 96375; 99285; J0696; J1644; J1815; J3475; J3490; J7030; J7050; J7060

== ENCOUNTER 2018-08-09 15:25 | Inpatient (IN) | payer MEDICARE, OTHER ==
[~2018-08-09] VITALS: Ht 149.9 cm; Wt 49.0 kg
[~2018-08-09 15:25] MED LIST changes: +ACET-2902 PO; -ACET-784 PO; -ASPI-1188 PO; +CEFTR1IV IV; +HEPA500041 SQ; -INSNOV SQ; +INSU100V SQ; +IPRNEB IH; +LEVO50 PO; +MEMA10TA11 PO; +METF-445 PO; -METO25XL PO; +ONDA4DIS2 IV; +PANT40TA25 PO; +PIOG15TA6 PO; +RAMI2.5 PO
[2018-08-09 15:35] VITALS: BP 144/71
[2018-08-09] MEDS ORDERED: DOCUSATE SODIUM 283 MG/5 ML MINI-ENEMA PR PRN (16:45)
[2018-08-09] MEDS ORDERED: DOCUSATE SODIUM 100 MG CAPSULE PO PRN (17:00)
[2018-08-09] MEDS ORDERED: ONDANSETRON HCL 4 MG TABLET PO PRN (17:00)
[2018-08-09] MEDS ORDERED: DEXTROSE 50%-WATER 25 GM/50 ML SYRINGE IVP PRN (17:30)
[2018-08-09 17:33] LABS: APPEARANCE,URINE CLEAR (CLEAR); BILIRUBIN,URINE NEGATIVE (NEGATIVE); GLUCOSE, URINE (UA) NEGATIVE (NEGATIVE); KETONES,URINE NEGATIVE (NEGATIVE); LEUKOCYTE ESTERASE ,URINE NEGATIVE (NEGATIVE); NITRATE,URINE NEGATIVE (NEGATIVE); OCCULT BLOOD,URINE NEGATIVE (NEGATIVE); PH,URINE 5.5 (5.0-8.0); PROTEIN,URINE SEE CONFIRM (NEGATIVE); UROBILINOGEN,URINE 0.2 mg/dL (<=1.0)
[2018-08-09 17:57] LABS: BACTERIA,URINE None Seen /HPF (None Seen); RBC,URINE 0-2 /HPF (0-2); SQUAMOUS EPITHELIAL CELL,UR Few /LPF (None Seen); SULFOSALICYLIC ACID,URINE 1+ (Negative); WBC,URINE 0-2 /HPF (0-5)
[2018-08-09 17:58] LABS: HYALINE CASTS, URINE 0-2 /LPF (None Seen)
[2018-08-09] MEDS: ACARBOSE 50 MG TABLET PO SCH (18:46)
[2018-08-09] MEDS: INSULIN LISPRO 100 UNITS/ML SQ PRN ×2 (18:51→21:55)
[2018-08-09] MEDS ORDERED: DOCUSATE SODIUM 100 MG CAPSULE PO SCH (21:00)
[2018-08-09] MEDS ORDERED: DOCUSATE SODIUM 250 MG CAPSULE PO SCH (21:00)
[2018-08-09 21:33] VITALS: BP 146/78
[2018-08-09 21:34] LABS: GLUCOMETER DEV NAME(LOC) 2WR 2E; GLUCOSE,POINT OF CARE 142 MG/DL (70-110)
[2018-08-09] MEDS: ATORVASTATIN CALCIUM 20 MG TABLET PO SCH (21:35)
[2018-08-09] MEDS: SENNA 187 MG TABLET PO SCH (21:35)
[2018-08-09] MEDS: METOPROLOL TARTRATE 25 MG TABLET PO SCH (21:35)
[2018-08-09] MEDS: HEPARIN SODIUM,PORCINE 5,000 UNITS/ML VIAL SQ SCH (21:36)
[2018-08-09 22:54] LABS: GLUCOMETER DEV NAME(LOC) 2WR 1C; GLUCOSE,POINT OF CARE 179 MG/DL (70-110)
[2018-08-10] VITALS: BP 114/72
[2018-08-10] MEDS ORDERED: POTASSIUM CHL 10 MEQ/WATER 50 ML IV PRN (00:45)
[2018-08-10] MEDS: LEVOTHYROXINE SODIUM 50 MCG TABLET PO SCH (05:59)
[2018-08-10] MEDS: PANTOPRAZOLE SODIUM 40 MG DR TABLET PO SCH (05:59)
[2018-08-10 06:34] LABS: GLUCOMETER DEV NAME(LOC) 2WR 1C; GLUCOSE,POINT OF CARE 168 MG/DL (70-110)
[2018-08-10 07:12] LABS: BASOPHILS % (AUTO) 0.9 % (0.0-2.0); EOSINOPHILS % (AUTO) 2.2 % (1.0-6.0); HEMATOCRIT 34.8 % (36-46); HEMOGLOBIN 11.9 g/dL (12.0-16.0); LYMPHOCYTES % (AUTO) 30.9 % (22.0-44.0); MEAN CORPUSCULAR HGB CONC 34.3 G/dL (31.0-37.0); MEAN CORPUSCULAR VOLUME 90 fL (80-100); MONOCYTES # (AUTO) 0.6 K/uL (0.1-1.0); MONOCYTES % (AUTO) 9.5 % (2.0-9.0); NEUTROPHILS # (AUTO) 3.7 K/uL (1.8-7.7); NEUTROPHILS % (AUTO) 56.5 % (40.0-70.0); PLATELET COUNT (AUTO) 240 K/uL (150-450); RED BLOOD CELL COUNT(AUTO) 3.85 MIL/uL (4.00-5.20)
[2018-08-10 07:36] LABS: ALBUMIN 2.7 g/dL (3.4-5.0); BILIRUBIN,TOTAL 0.2 mg/dL (0.1-1.0); CREATININE 0.99 mg/dL (0.60-1.30); POTASSIUM 4.3 mmol/L (3.5-5.1); TOTAL PROTEIN, SERUM 6.7 g/dL (6.4-8.2)
[2018-08-10 07:38] VITALS: BP 150/75
[2018-08-10] MEDS: 0.9% SODIUM CHLORIDE 10 ML SYRINGE IVP SCH ×4 (08:00→23:49)
[2018-08-10] MEDS: METOPROLOL TARTRATE 25 MG TABLET PO SCH ×2 (08:23→20:49)
[2018-08-10] MEDS: ASPIRIN 81 MG CHEWABLE TABLET PO SCH (08:23)
[2018-08-10] MEDS: PIOGLITAZONE HCL 15 MG TABLET PO SCH (08:24)
[2018-08-10] MEDS: ACARBOSE 50 MG TABLET PO SCH ×3 (08:24→16:43)
[2018-08-10] MEDS: HEPARIN SODIUM,PORCINE 5,000 UNITS/ML VIAL SQ SCH ×2 (08:24→20:48)
[2018-08-10] MEDS: INSULIN LISPRO 100 UNITS/ML SQ PRN ×3 (08:25→18:48)
[2018-08-10] MEDS: DOCUSATE SODIUM 250 MG CAPSULE PO SCH ×2 (08:32→20:48)
[2018-08-10] MEDS ORDERED: POTASSIUM CHLORIDE 20 MEQ ER TABLET PO PRN ×2 (09:00)
[2018-08-10 12:07] LABS: HEMOGLOBIN A1C 7.3 % (4.5-6.2)
[2018-08-10 12:14] LABS: GLUCOMETER DEV NAME(LOC) 2WR 1C; GLUCOSE,POINT OF CARE 168 MG/DL (70-110)
[2018-08-10 15:51] VITALS: BP 146/69
[2018-08-10] MEDS: CefTRIAXone SODIUM 1 GM in DEXTROSE 5%-WATER 10 ML IV SCH (16:43)
[2018-08-10 18:39] LABS: GLUCOMETER DEV NAME(LOC) 2WR 2E; GLUCOSE,POINT OF CARE 169 MG/DL (70-110)
[2018-08-10] MEDS: ATORVASTATIN CALCIUM 20 MG TABLET PO SCH (20:49)
[2018-08-10] MEDS: SENNA 187 MG TABLET PO SCH (20:49)
[2018-08-10 22:04] LABS: GLUCOMETER DEV NAME(LOC) 2WR 2E; GLUCOSE,POINT OF CARE 131 MG/DL (70-110)
[2018-08-11] VITALS: BP 128/79
[2018-08-11 05:39] LABS: GLUCOMETER DEV NAME(LOC) 2WR 1C; GLUCOSE,POINT OF CARE 160 MG/DL (70-110)
[2018-08-11] MEDS: LEVOTHYROXINE SODIUM 50 MCG TABLET PO SCH (06:28)
[2018-08-11] MEDS: PANTOPRAZOLE SODIUM 40 MG DR TABLET PO SCH (06:28)
[2018-08-11 07:22] LABS: BASOPHILS % (AUTO) 0.9 % (0.0-2.0); EOSINOPHILS % (AUTO) 3.1 % (1.0-6.0); HEMATOCRIT 34.8 % (36-46); LYMPHOCYTES # (AUTO) 2.1 K/uL (1.0-4.8); LYMPHOCYTES % (AUTO) 35.2 % (22.0-44.0); MEAN CORPUSCULAR HEMOGLOBIN 31.3 pg (26.0-34.0); MEAN CORPUSCULAR HGB CONC 34.5 G/dL (31.0-37.0); MEAN CORPUSCULAR VOLUME 91 fL (80-100); MONOCYTES # (AUTO) 0.6 K/uL (0.1-1.0); MONOCYTES % (AUTO) 9.8 % (2.0-9.0); PLATELET COUNT (AUTO) 232 K/uL (150-450); RED BLOOD CELL COUNT(AUTO) 3.84 MIL/uL (4.00-5.20); RED CELL DISTRIBUTION WIDTH 14.2 % (11.5-14.5)
[2018-08-11 07:37] LABS: ALBUMIN 2.7 g/dL (3.4-5.0); BILIRUBIN,TOTAL 0.2 mg/dL (0.1-1.0); CALCIUM, TOTAL 9.2 mg/dL (8.8-10.5); CREATININE 0.91 mg/dL (0.60-1.30); MAGNESIUM 1.8 mg/dL (1.80-2.40); POTASSIUM 4.5 mmol/L (3.5-5.1); TOTAL PROTEIN, SERUM 6.5 g/dL (6.4-8.2)
[2018-08-11 07:50] VITALS: BP 162/82
[2018-08-11] MEDS: HEPARIN SODIUM,PORCINE 5,000 UNITS/ML VIAL SQ SCH ×2 (08:02→20:50)
[2018-08-11] MEDS: ACARBOSE 50 MG TABLET PO SCH ×3 (08:03→17:33)
[2018-08-11] MEDS: PIOGLITAZONE HCL 15 MG TABLET PO SCH (08:03)
[2018-08-11] MEDS: DOCUSATE SODIUM 250 MG CAPSULE PO SCH ×3 (08:03→20:51)
[2018-08-11] MEDS: METOPROLOL TARTRATE 25 MG TABLET PO SCH ×2 (08:03→20:50)
[2018-08-11] MEDS: ASPIRIN 81 MG CHEWABLE TABLET PO SCH (08:03)
[2018-08-11] MEDS: 0.9% SODIUM CHLORIDE 10 ML SYRINGE IVP SCH ×3 (08:03→23:22)
[2018-08-11] MEDS: ALBUTEROL SULFATE 2.5 MG/0.5 ML NEB SOLUTION NEB PRN (11:00)
[2018-08-11] MEDS: IPRATROPIUM BROMIDE 0.5 MG/2.5 ML NEB SOLUTION NEB PRN (11:01)
[2018-08-11 11:30] VITALS: BP 126/72
[2018-08-11] MEDS: INSULIN LISPRO 100 UNITS/ML SQ PRN ×2 (12:21→21:09)
[2018-08-11 12:24] LABS: GLUCOMETER DEV NAME(LOC) 2WR 1C; GLUCOSE,POINT OF CARE 210 MG/DL (70-110)
[2018-08-11 15:26] VITALS: BP 139/68
[2018-08-11] MEDS: CefTRIAXone SODIUM 1 GM in DEXTROSE 5%-WATER 10 ML IV SCH (16:15)
[2018-08-11 17:59] LABS: GLUCOMETER DEV NAME(LOC) 2WR 1C; GLUCOSE,POINT OF CARE 91 MG/DL (70-110)
[2018-08-11 20:47] VITALS: BP 130/56
[2018-08-11] MEDS: ATORVASTATIN CALCIUM 20 MG TABLET PO SCH (20:50)
[2018-08-11] MEDS: SENNA 187 MG TABLET PO SCH ×2 (20:50→21:00)
[2018-08-11 21:49] LABS: GLUCOMETER DEV NAME(LOC) 2WR 1C; GLUCOSE,POINT OF CARE 232 MG/DL (70-110)
[2018-08-11 23:39] VITALS: BP 127/61
[2018-08-12] MEDS: ACETAMINOPHEN 325 MG TABLET PO PRN ×2 (00:21→10:44)
[2018-08-12 05:54] LABS: GLUCOMETER DEV NAME(LOC) 2WR 1C; GLUCOSE,POINT OF CARE 179 MG/DL (70-110)
[2018-08-12] MEDS: LEVOTHYROXINE SODIUM 50 MCG TABLET PO SCH (06:07)
[2018-08-12] MEDS: PANTOPRAZOLE SODIUM 40 MG DR TABLET PO SCH (06:07)
[2018-08-12 07:33] VITALS: BP 106/63
[2018-08-12] MEDS: DOCUSATE SODIUM 250 MG CAPSULE PO SCH ×2 (08:31→21:00)
[2018-08-12] MEDS: HEPARIN SODIUM,PORCINE 5,000 UNITS/ML VIAL SQ SCH ×2 (08:32→21:14)
[2018-08-12] MEDS: 0.9% SODIUM CHLORIDE 10 ML SYRINGE IVP SCH ×2 (08:33→16:50)
[2018-08-12] MEDS: ACARBOSE 50 MG TABLET PO SCH ×3 (08:33→17:34)
[2018-08-12] MEDS: METOPROLOL TARTRATE 25 MG TABLET PO SCH ×2 (09:05→21:14)
[2018-08-12] MEDS: ASPIRIN 81 MG CHEWABLE TABLET PO SCH (09:05)
[2018-08-12] MEDS: PIOGLITAZONE HCL 15 MG TABLET PO SCH (09:06)
[2018-08-12 13:09] LABS: GLUCOMETER DEV NAME(LOC) 2WR 2E; GLUCOSE,POINT OF CARE 207 MG/DL (70-110)
[2018-08-12 15:19] VITALS: BP 155/66
[2018-08-12] MEDS: CefTRIAXone SODIUM 1 GM in DEXTROSE 5%-WATER 10 ML IV SCH (17:34)
[2018-08-12] MEDS: INSULIN LISPRO 100 UNITS/ML SQ PRN ×2 (17:37→21:18)
[2018-08-12 17:59] LABS: GLUCOMETER DEV NAME(LOC) 2WR 1C; GLUCOSE,POINT OF CARE 173 MG/DL (70-110)
[2018-08-12 21:00] VITALS: BP 122/69
[2018-08-12] MEDS: SENNA 187 MG TABLET PO SCH (21:00)
[2018-08-12] MEDS: ATORVASTATIN CALCIUM 20 MG TABLET PO SCH (21:14)
[2018-08-12 21:40] LABS: GLUCOMETER DEV NAME(LOC) 2WR 2E; GLUCOSE,POINT OF CARE 204 MG/DL (70-110)
[2018-08-13] MEDS: 0.9% SODIUM CHLORIDE 10 ML SYRINGE IVP SCH ×4 (01:48→23:04)
[2018-08-13 02:02] VITALS: BP 133/65
[2018-08-13] MEDS: PANTOPRAZOLE SODIUM 40 MG DR TABLET PO SCH (06:14)
[2018-08-13] MEDS: LEVOTHYROXINE SODIUM 50 MCG TABLET PO SCH (06:14)
[2018-08-13 06:15] LABS: GLUCOMETER DEV NAME(LOC) 2WR 2E; GLUCOSE,POINT OF CARE 174 MG/DL (70-110)
[2018-08-13] MEDS: ACARBOSE 50 MG TABLET PO SCH ×3 (08:23→17:28)
[2018-08-13] MEDS: PIOGLITAZONE HCL 15 MG TABLET PO SCH (08:23)
[2018-08-13] MEDS: DOCUSATE SODIUM 250 MG CAPSULE PO SCH ×2 (08:24→20:48)
[2018-08-13] MEDS: CLOPIDOGREL BISULFATE 75 MG TABLET PO SCH (08:24)
[2018-08-13] MEDS: ASPIRIN 81 MG CHEWABLE TABLET PO SCH (08:24)
[2018-08-13] MEDS: METOPROLOL TARTRATE 25 MG TABLET PO SCH ×2 (08:24→20:51)
[2018-08-13] MEDS: HEPARIN SODIUM,PORCINE 5,000 UNITS/ML VIAL SQ SCH ×2 (08:25→20:51)
[2018-08-13 08:53] VITALS: BP 118/57
[2018-08-13 12:28] LABS: GLUCOMETER DEV NAME(LOC) 2WR 2E; GLUCOSE,POINT OF CARE 240 MG/DL (70-110)
[2018-08-13] MEDS: INSULIN LISPRO 100 UNITS/ML SQ PRN ×3 (12:37→21:02)
[2018-08-13 15:36] VITALS: BP 115/54
[2018-08-13] MEDS: CefTRIAXone SODIUM 1 GM in DEXTROSE 5%-WATER 10 ML IV SCH (17:26)
[2018-08-13 18:35] LABS: GLUCOMETER DEV NAME(LOC) 2WR 1C; GLUCOSE,POINT OF CARE 155 MG/DL (70-110)
[2018-08-13 20:46] VITALS: BP 129/60
[2018-08-13] MEDS: SENNA 187 MG TABLET PO SCH (20:49)
[2018-08-13] MEDS: ATORVASTATIN CALCIUM 20 MG TABLET PO SCH (20:51)
[2018-08-13 21:48] LABS: GLUCOMETER DEV NAME(LOC) 2WR 2E; GLUCOSE,POINT OF CARE 186 MG/DL (70-110)
[2018-08-13 23:04] VITALS: BP 138/62
[2018-08-14] MEDS: PANTOPRAZOLE SODIUM 40 MG DR TABLET PO SCH (05:37)
[2018-08-14] MEDS: LEVOTHYROXINE SODIUM 50 MCG TABLET PO SCH (05:37)
[2018-08-14 06:35] LABS: GLUCOMETER DEV NAME(LOC) 2WR 1C; GLUCOSE,POINT OF CARE 178 MG/DL (70-110)
[2018-08-14 07:02] LABS: EOSINOPHILS % (AUTO) 2.4 % (1.0-6.0); HEMATOCRIT 33.2 % (36-46); HEMOGLOBIN 11.5 g/dL (12.0-16.0); LYMPHOCYTES # (AUTO) 1.7 K/uL (1.0-4.8); MEAN CORPUSCULAR HEMOGLOBIN 31.5 pg (26.0-34.0); MEAN CORPUSCULAR HGB CONC 34.6 G/dL (31.0-37.0); MEAN CORPUSCULAR VOLUME 91 fL (80-100); MONOCYTES # (AUTO) 0.6 K/uL (0.1-1.0); MONOCYTES % (AUTO) 8.9 % (2.0-9.0); NEUTROPHILS % (AUTO) 61.7 % (40.0-70.0); PLATELET COUNT (AUTO) 240 K/uL (150-450); RED BLOOD CELL COUNT(AUTO) 3.65 MIL/uL (4.00-5.20)
[2018-08-14 07:22] LABS: ALBUMIN 2.9 g/dL (3.4-5.0); BILIRUBIN,TOTAL 0.2 mg/dL (0.1-1.0); CALCIUM, TOTAL 8.9 mg/dL (8.8-10.5); CREATININE 1.12 mg/dL (0.60-1.30); MAGNESIUM 1.8 mg/dL (1.80-2.40); POTASSIUM 4.3 mmol/L (3.5-5.1); TOTAL PROTEIN, SERUM 6.4 g/dL (6.4-8.2)
[2018-08-14 07:30] VITALS: BP 137/70
[2018-08-14] MEDS: ACARBOSE 50 MG TABLET PO SCH ×3 (09:10→17:39)
[2018-08-14] MEDS: PIOGLITAZONE HCL 15 MG TABLET PO SCH (09:10)
[2018-08-14] MEDS: HEPARIN SODIUM,PORCINE 5,000 UNITS/ML VIAL SQ SCH ×2 (09:10→21:06)
[2018-08-14] MEDS: METOPROLOL TARTRATE 25 MG TABLET PO SCH ×2 (09:12→21:06)
[2018-08-14] MEDS: ASPIRIN 81 MG CHEWABLE TABLET PO SCH (09:12)
[2018-08-14] MEDS: CLOPIDOGREL BISULFATE 75 MG TABLET PO SCH (09:12)
[2018-08-14] MEDS: DOCUSATE SODIUM 250 MG CAPSULE PO SCH (09:12)
[2018-08-14] MEDS: 0.9% SODIUM CHLORIDE 10 ML SYRINGE IVP SCH ×3 (09:13→23:36)
[2018-08-14] MEDS: INSULIN LISPRO 100 UNITS/ML SQ PRN ×3 (12:48→21:05)
[2018-08-14 14:19] LABS: GLUCOMETER DEV NAME(LOC) 2WR 2E; GLUCOSE,POINT OF CARE 204 MG/DL (70-110)
[2018-08-14 15:51] VITALS: BP 133/80
[2018-08-14] MEDS: CefTRIAXone SODIUM 1 GM in DEXTROSE 5%-WATER 10 ML IV SCH (16:40)
[2018-08-14 17:39] LABS: GLUCOMETER DEV NAME(LOC) 2WR 2E; GLUCOSE,POINT OF CARE 144 MG/DL (70-110)
[2018-08-14] MEDS: MetFORMIN HCL 850 MG TABLET PO SCH (17:39)
[2018-08-14 20:29] VITALS: BP 110/59
[2018-08-14] MEDS: SENNA 187 MG TABLET PO SCH (21:06)
[2018-08-14] MEDS: ATORVASTATIN CALCIUM 20 MG TABLET PO SCH (21:06)
[2018-08-14 22:14] LABS: GLUCOMETER DEV NAME(LOC) 2WR 1C; GLUCOSE,POINT OF CARE 207 MG/DL (70-110)
[2018-08-14 23:48] VITALS: BP 116/70
[2018-08-15] VITALS (7 sets, daily range): BP systolic 107–135; BP diastolic 52–96
[2018-08-15] MEDS: FAMOTIDINE 20 MG TABLET PO SCH (05:39)
[2018-08-15] MEDS: LEVOTHYROXINE SODIUM 50 MCG TABLET PO SCH (05:39)
[2018-08-15 05:54] LABS: GLUCOMETER DEV NAME(LOC) 2WR 1C; GLUCOSE,POINT OF CARE 165 MG/DL (70-110)
[2018-08-15] MEDS: PIOGLITAZONE HCL 15 MG TABLET PO SCH (08:14)
[2018-08-15] MEDS: ASPIRIN 81 MG CHEWABLE TABLET PO SCH (08:14)
[2018-08-15] MEDS: CLOPIDOGREL BISULFATE 75 MG TABLET PO SCH (08:14)
[2018-08-15] MEDS: MetFORMIN HCL 850 MG TABLET PO SCH ×2 (08:14→17:55)
[2018-08-15] MEDS: ACARBOSE 50 MG TABLET PO SCH ×3 (08:14→17:55)
[2018-08-15] MEDS: HEPARIN SODIUM,PORCINE 5,000 UNITS/ML VIAL SQ SCH ×2 (08:15→20:10)
[2018-08-15] MEDS: METOPROLOL TARTRATE 25 MG TABLET PO SCH ×2 (08:15→20:12)
[2018-08-15] MEDS: INSULIN LISPRO 100 UNITS/ML SQ PRN ×4 (08:15→21:44)
[2018-08-15] MEDS: ACETAMINOPHEN 325 MG TABLET PO PRN ×2 (08:17→23:53)
[2018-08-15] MEDS: 0.9% SODIUM CHLORIDE 10 ML SYRINGE IVP SCH (08:17)
[2018-08-15] MEDS: DOCUSATE SODIUM 100 MG CAPSULE PO SCH ×2 (08:17→20:12)
[2018-08-15 12:35] LABS: GLUCOMETER DEV NAME(LOC) 2WR 1C; GLUCOSE,POINT OF CARE 158 MG/DL (70-110)
[2018-08-15 12:43] LABS: APPEARANCE,URINE CLEAR (CLEAR); BILIRUBIN,URINE NEGATIVE (NEGATIVE); GLUCOSE, URINE (UA) NEGATIVE (NEGATIVE); KETONES,URINE NEGATIVE (NEGATIVE); LEUKOCYTE ESTERASE ,URINE NEGATIVE (NEGATIVE); NITRATE,URINE NEGATIVE (NEGATIVE); OCCULT BLOOD,URINE NEGATIVE (NEGATIVE); PROTEIN,URINE SEE CONFIRM (NEGATIVE); UROBILINOGEN,URINE 0.2 mg/dL (<=1.0)
[2018-08-15 12:57] LABS: BACTERIA,URINE None Seen /HPF (None Seen); RBC,URINE 0-2 /HPF (0-2); SQUAMOUS EPITHELIAL CELL,UR Few /LPF (None Seen); SULFOSALICYLIC ACID,URINE 1+ (Negative); WBC,URINE 0-2 /HPF (0-5)
[2018-08-15 18:04] LABS: GLUCOMETER DEV NAME(LOC) 2WR 2E; GLUCOSE,POINT OF CARE 147 MG/DL (70-110)
[2018-08-15] MEDS: SENNA 187 MG TABLET PO SCH (20:12)
[2018-08-15] MEDS: ATORVASTATIN CALCIUM 20 MG TABLET PO SCH (20:12)
[2018-08-15 22:13] LABS: GLUCOMETER DEV NAME(LOC) 2WR 1C; GLUCOSE,POINT OF CARE 152 MG/DL (70-110)
[2018-08-16 01:06] VITALS: BP 114/56
[2018-08-16 05:55] LABS: GLUCOMETER DEV NAME(LOC) 2WR 2E; GLUCOSE,POINT OF CARE 173 MG/DL (70-110)
[2018-08-16] MEDS: ALBUTEROL SULFATE 2.5 MG/0.5 ML NEB SOLUTION NEB PRN (06:20)
[2018-08-16] MEDS: IPRATROPIUM BROMIDE 0.5 MG/2.5 ML NEB SOLUTION NEB PRN (06:20)
[2018-08-16] MEDS: LEVOTHYROXINE SODIUM 50 MCG TABLET PO SCH (06:38)
[2018-08-16 06:44] LABS: BASOPHILS % (AUTO) 0.8 % (0.0-2.0); EOSINOPHILS % (AUTO) 2.5 % (1.0-6.0); HEMATOCRIT 31.6 % (36-46); HEMOGLOBIN 10.8 g/dL (12.0-16.0); LYMPHOCYTES # (AUTO) 1.9 K/uL (1.0-4.8); LYMPHOCYTES % (AUTO) 28.3 % (22.0-44.0); MEAN CORPUSCULAR HEMOGLOBIN 31.3 pg (26.0-34.0); MEAN CORPUSCULAR HGB CONC 34.1 G/dL (31.0-37.0); MEAN CORPUSCULAR VOLUME 92 fL (80-100); MONOCYTES # (AUTO) 0.7 K/uL (0.1-1.0); MONOCYTES % (AUTO) 10.2 % (2.0-9.0); NEUTROPHILS # (AUTO) 3.8 K/uL (1.8-7.7); NEUTROPHILS % (AUTO) 58.2 % (40.0-70.0); PLATELET COUNT (AUTO) 246 K/uL (150-450); RED BLOOD CELL COUNT(AUTO) 3.43 MIL/uL (4.00-5.20); RED CELL DISTRIBUTION WIDTH 14.3 % (11.5-14.5)
[2018-08-16] MEDS: FAMOTIDINE 20 MG TABLET PO SCH (06:54)
[2018-08-16 07:00] LABS: ALBUMIN 2.7 g/dL (3.4-5.0); BILIRUBIN,TOTAL 0.2 mg/dL (0.1-1.0); CALCIUM, TOTAL 9.2 mg/dL (8.8-10.5); CREATININE 1.23 mg/dL (0.60-1.30); MAGNESIUM 1.9 mg/dL (1.80-2.40); POTASSIUM 5.1 mmol/L (3.5-5.1); TOTAL PROTEIN, SERUM 6.7 g/dL (6.4-8.2)
[2018-08-16 07:30] VITALS: BP 114/55
[2018-08-16] MEDS: PIOGLITAZONE HCL 15 MG TABLET PO SCH (09:33)
[2018-08-16] MEDS: METOPROLOL TARTRATE 25 MG TABLET PO SCH (09:33)
[2018-08-16] MEDS: MetFORMIN HCL 850 MG TABLET PO SCH (09:33)
[2018-08-16] MEDS: ASPIRIN 81 MG CHEWABLE TABLET PO SCH (09:33)
[2018-08-16] MEDS: ACARBOSE 50 MG TABLET PO SCH ×2 (09:33→12:39)
[2018-08-16] MEDS: HEPARIN SODIUM,PORCINE 5,000 UNITS/ML VIAL SQ SCH (09:33)
[2018-08-16] MEDS: CLOPIDOGREL BISULFATE 75 MG TABLET PO SCH (09:33)
[2018-08-16] MEDS: DOCUSATE SODIUM 100 MG CAPSULE PO SCH (09:35)
[2018-08-16] MEDS: INSULIN LISPRO 100 UNITS/ML SQ PRN ×2 (09:50→12:41)
[2018-08-16 13:09] LABS: GLUCOMETER DEV NAME(LOC) 2WR 1C; GLUCOSE,POINT OF CARE 171 MG/DL (70-110)
== END 2018-08-16 13:55 | DRG 65 ==
LOC: 2WR 15:25 → UNDOADMIN 16:46
PROVIDERS: ADMIT Physical Medicine & Rehabilitation; ATTEND Physical Medicine & Rehabilitation
DX: I63.9 Cerebral infarction, unspecified (principal); N39.0 Urinary tract infection, site not specified; G81.94 Hemiplegia, unspecified affecting left nondominant side; E03.9 Hypothyroidism, unspecified; E78.5 Hyperlipidemia, unspecified; E87.6 Hypokalemia; F02.80 Dementia in other diseases classified elsewhere, unspecified severity, without behavioral disturbance, psychotic disturbance, mood disturbance, and anxiety; E11.9 Type 2 diabetes mellitus without complications; I11.0 Hypertensive heart disease with heart failure; I48.91 Unspecified atrial fibrillation; I50.9 Heart failure, unspecified; I65.21 Occlusion and stenosis of right carotid artery; I66.09 Occlusion and stenosis of unspecified middle cerebral artery; K21.9 Gastro-esophageal reflux disease without esophagitis; R27.8 Other lack of coordination; I49.5 Sick sinus syndrome; R47.01 Aphasia; E78.00 Pure hypercholesterolemia, unspecified; N28.9 Disorder of kidney and ureter, unspecified
CPT/HCPCS: 72100; 73502; 73552; 83036; 83735; 87081; 92507; 92508; 92523; 93005; 94640; 97110; 97112; 97116; 97150; 97162; 97167; 97530; 97535; 99366; J0696; J1644; J7060; Q0162